=== PATIENT | female | born 1980 | race African-American/Black ===

== ENCOUNTER → 2016-06-10 | Outpatient (REF) ==
[~2016-06-10] MED LIST: DOXYCYCLINE HY100 MG PO; FLEXERIL 1010 MG/TAB PO; NORCO 325 MG-51 TAB PO
== END ==
LOC: WSOH 10:02
DX: Z02.1 Encounter for pre-employment examination (principal)

== ENCOUNTER → 2016-06-15 | Outpatient (REF) | LOC: WSOH 14:52 | DX: Z02.1 Encounter for pre-employment examination (principal); Z00.00 Encounter for general adult medical examination without abnormal findings ==

== ENCOUNTER → 2016-06-23 | Outpatient (REF) | LOC: WSOH 15:39 | DX: Z11.1 Encounter for screening for respiratory tuberculosis (principal) ==

== ENCOUNTER → 2016-07-14 | Outpatient (REF) | LOC: WSOH 15:36 | DX: Z02.89 Encounter for other administrative examinations (principal) ==

== ENCOUNTER 2016-09-18 09:08 | Emergency (ER) | payer SELFPAY ==
[~2016-09-18] VITALS: Ht 180.3 cm; Wt 81.4 kg
[~2016-09-18 09:08] MED LIST changes: -DOXYCYCLINE HY100 MG PO
[2016-09-18 09:20] VITALS: TEMP 99
[2016-09-18] MEDS ORDERED: NORCO 325 MG-51 TAB PO (09:51)
[2016-09-18] MEDS ORDERED: DOXYCYCLINE HY100 MG PO (09:51)
[2016-09-18 10:43] VITALS: BP 140/97; PULSE 75
== END 2016-09-18 10:47 | disposition home or self-care (01) ==
LOC: COL.ER 09:08
DX: N61.1 Abscess of the breast and nipple (principal); Z87.891 Personal history of nicotine dependence

== ENCOUNTER → 2016-12-10 | Outpatient (REF) ==
[~2016-12-10] MED LIST changes: +DOXYCYCLINE HY100 MG PO
== END ==
LOC: WSOH 15:25
DX: Z23 Encounter for immunization (principal)

== ENCOUNTER → 2017-01-07 | Outpatient (REF) | LOC: WSOH 15:43 | DX: Z02.89 Encounter for other administrative examinations (principal) ==

== ENCOUNTER 2017-05-04 06:58 | Emergency (ER) | payer OTHER ==
[~2017-05-04] VITALS: Ht 180.3 cm; Wt 79.5 kg
[2017-05-04 07:05] VITALS: TEMP 98.9
[2017-05-04 08:00] LABS: INFLUENZA A NEGATIVE; INFLUENZA B NEGATIVE
[2017-05-04] MEDS ORDERED: TAMIFLU 75MG75 MG PO (09:06)
[2017-05-04 09:16] VITALS: BP 136/80; PULSE 90
== END 2017-05-04 09:17 | disposition home or self-care (01) ==
LOC: COL.ER 06:58
PROVIDERS: Nurse Practitioner
DX: J11.1 Influenza due to unidentified influenza virus with other respiratory manifestations (principal); Z87.891 Personal history of nicotine dependence; Z98.890 Other specified postprocedural states
CPT/HCPCS: J1885; J2405; J7030

== ENCOUNTER → 2017-06-07 | Outpatient (CLI) | payer OTHER ==
[~2017-06-07] MED LIST changes: +TAMIFLU 75MG75 MG PO
== END ==
LOC: ZCOL.LAB 16:19
DX: N61.0 Mastitis without abscess (principal)

== ENCOUNTER → 2017-06-08 | Outpatient (CLI) | payer OTHER | LOC: COL.RAD 08:15 | DX: S83.511A Sprain of anterior cruciate ligament of right knee, initial encounter (principal); S83.281A Other tear of lateral meniscus, current injury, right knee, initial encounter; M94.8X8 Other specified disorders of cartilage, other site; Z98.890 Other specified postprocedural states ==

== ENCOUNTER 2017-08-03 11:15 | Outpatient (RCR) | payer OTHER | END 2017-08-24 08:08 | disposition home or self-care (01) | LOC: WSPT 11:15 | DX: M17.11 Unilateral primary osteoarthritis, right knee (principal); M70.61 Trochanteric bursitis, right hip | CPT/HCPCS: G0283-GP ==

== ENCOUNTER 2017-08-29 16:26 | Emergency (ER) | payer OTHER ==
[~2017-08-29] VITALS: Ht 180.3 cm; Wt 84.5 kg
[2017-08-29 16:29] VITALS: TEMP 98.2
[2017-08-29 16:59] LABS: BASO % 0.4 % (0.0-2.0); EOS % 0.1 % (0-4.0); GRAN # 6.7 (1.4-6.5); GRAN % 71.7 % (42.2-75.2); HEMATOCRIT 41.9 % (37.0-47.0); HEMOGLOBIN 14.9 g/dl (12.5-16.0); LYMPH # 2.1 (1.2-3.4); LYMPH % 22.9 % (20.0-51.0); MEAN CELL VOLUME 89 fl (80.0-100.0); MEAN CORPUSCULAR HEMOGLOBIN 32 pg (27.0-31.0); MEAN CORPUSCULAR HGB CONC 36 g/dl (33.0-37.0); MEAN PLATELET VOLUME 8.9 fl (7.4-10.4); MONO # 0.4 (0.1-0.6); MONO % 4.7 % (1.7-9.3); PLATELET COUNT 323 K/mm3 (130-400); RED BLOOD COUNT 4.69 M/mm3 (4.10-5.30); REDCELL DISTRIBUTION WIDTH-CV 13.2 % (11.5-14.5)
[2017-08-29 17:11] LABS: BILIRUBIN,TOTAL 0.4 mg/dL (0.0-1.0); CALCIUM 10.2 mg/dL (8.4-10.2); CREATININE, serum 0.72 mg/dL (0.52-1.25); TOTAL PROTEIN 9.2 gm/dL (6.4-8.2)
[2017-08-29] MEDS ORDERED: PHENERGAN 25 TA25 MG PO (17:22)
[2017-08-29 18:01] LABS: COLLECTION METHOD CLEAN CATCH
[2017-08-29 18:11] LABS: MUCOUS Present /lpf; PH 7 (5-8); SQUAMOUS EPITHELIAL 0-2 /hpf; URINE APPEARANCE Clear; URINE BACTERIA None Seen /hpf; URINE BILIRUBIN Negative (NEGATIVE); URINE BLOOD 2+ (NEGATIVE); URINE COLOR Yellow; URINE GLUCOSE Negative (NEGATIVE); URINE KETONE Trace (NEGATIVE); URINE LEUKOCYTE ESTERASE Negative (NEGATIVE); URINE NITRATE Negative (NEGATIVE); URINE PROTEIN(semi-quant) 2+ (NEGATIVE); URINE UROBILINOGEN Negative (NEGATIVE)
[2017-08-29 18:50] VITALS: BP 132/85; PULSE 82
== END 2017-08-29 18:50 | disposition home or self-care (01) ==
LOC: COL.ER 16:26
PROVIDERS: Emergency Medicine
DX: R11.10 Vomiting, unspecified (principal); R10.33 Periumbilical pain
CPT/HCPCS: J1170; J1200; J1630; J1885; J2405; J7030

== ENCOUNTER 2017-09-24 11:23 | Outpatient (RCR) | payer OTHER ==
[~2017-09-24 11:23] MED LIST changes: +PHENERGAN 25 TA25 MG PO
[2017-09-24] MEDS ORDERED: FIORICET 325 MG1 TA1 PO (16:09)
[2017-09-24] MEDS ORDERED: PHENERGAN 25 TA25 MG PO (16:09)
== END 2017-09-29 07:43 | disposition home or self-care (01) ==
LOC: WSPT 11:23
DX: Z01.89 Encounter for other specified special examinations (principal)

== ENCOUNTER 2017-09-24 11:51 | Emergency (ER) | payer OTHER ==
[~2017-09-24] VITALS: Ht 180.3 cm; Wt 83.2 kg
[2017-09-24 11:58] VITALS: BP 146/96; TEMP 98.2
[2017-09-24 13:02] LABS: BASO % 0.1 % (0.0-2.0); EOS % 0.4 % (0-4.0); GRAN # 7.4 (1.4-6.5); HEMATOCRIT 29.6 % (37.0-47.0); HEMOGLOBIN 10.1 g/dl (12.5-16.0); LYMPH # 1.4 (1.2-3.4); LYMPH % 14.9 % (20.0-51.0); MEAN CELL VOLUME 94 fl (80.0-100.0); MEAN CORPUSCULAR HEMOGLOBIN 32 pg (27.0-31.0); MEAN CORPUSCULAR HGB CONC 34 g/dl (33.0-37.0); MEAN PLATELET VOLUME 8.9 fl (7.4-10.4); MONO # 0.5 (0.1-0.6); MONO % 5.4 % (1.7-9.3); PLATELET COUNT 233 K/mm3 (130-400); RED BLOOD COUNT 3.16 M/mm3 (4.10-5.30); REDCELL DISTRIBUTION WIDTH-CV 12.4 % (11.5-14.5)
[2017-09-24 13:04] LABS: INR 1.1 (0.8-3.0)
[2017-09-24 13:07] LABS: PARTIAL THROMBOPLASTIN TIME 29.6 SECONDS (26.0-37.0)
[2017-09-24 13:11] LABS: CALCIUM 9.2 mg/dL (8.4-10.2); CREATININE, serum 0.66 mg/dL (0.52-1.25); POTASSIUM 3.3 mmol/L (3.4-5.0)
[2017-09-24] MEDS ORDERED: FIORICET 325 MG1 TA1 PO (16:09)
[2017-09-24] MEDS ORDERED: PHENERGAN 25 TA25 MG PO (16:09)
[2017-09-24 16:19] VITALS: PULSE 73
== END 2017-09-24 16:20 | disposition home or self-care (01) ==
LOC: COL.ER 11:51
PROVIDERS: Emergency Medicine
DX: G97.1 Other reaction to spinal and lumbar puncture (principal); I10 Essential (primary) hypertension; Z96.651 Presence of right artificial knee joint; Z79.82 Long term (current) use of aspirin
CPT/HCPCS: J1170; J1885; J2550; J3010; J7030

== ENCOUNTER 2017-11-09 16:15 | Outpatient (RCR) | payer OTHER ==
[~2017-11-09 16:15] MED LIST changes: +FIORICET 325 MG1 TA1 PO
== END 2017-11-10 11:09 | disposition home or self-care (01) ==
LOC: WSPT 16:15
DX: Z47.1 Aftercare following joint replacement surgery (principal); Z96.651 Presence of right artificial knee joint
CPT/HCPCS: G0283-GP

== ENCOUNTER 2017-11-29 20:20 | Emergency (ER) | payer OTHER ==
[~2017-11-29] VITALS: Ht 180.3 cm; Wt 84.1 kg
[2017-11-29 20:25] VITALS: BP 140/87; TEMP 98.7
[2017-11-29 20:53] LABS: BASO % 0.3 % (0.0-2.0); EOS # 0.1 (0.0-0.7); EOS % 1.1 % (0-4.0); GRAN # 3.9 (1.4-6.5); GRAN % 53.6 % (42.2-75.2); HEMOGLOBIN 12.3 g/dl (12.5-16.0); LYMPH # 2.8 (1.2-3.4); LYMPH % 39.3 % (20.0-51.0); MEAN CELL VOLUME 91 fl (80.0-100.0); MEAN CORPUSCULAR HEMOGLOBIN 31 pg (27.0-31.0); MEAN CORPUSCULAR HGB CONC 34 g/dl (33.0-37.0); MONO # 0.4 (0.1-0.6); MONO % 5.6 % (1.7-9.3); PLATELET COUNT 261 K/mm3 (130-400); RED BLOOD COUNT 3.95 M/mm3 (4.10-5.30); REDCELL DISTRIBUTION WIDTH-CV 12.4 % (11.5-14.5)
[2017-11-29 20:58] LABS: HEMATOCRIT 36.1 % (37.0-47.0)
[2017-11-29 21:04] LABS: ALBUMIN 4.4 gm/dL (3.5-5.0); BILIRUBIN,TOTAL 0.1 mg/dL (0.0-1.0); C-REACTIVE PROTEIN 0.7 mg/dL (0.0-0.9); CALCIUM 9.5 mg/dL (8.4-10.2); CREATININE, serum 0.75 mg/dL (0.52-1.25); POTASSIUM 3.6 mmol/L (3.4-5.0); TOTAL PROTEIN 7.5 gm/dL (6.4-8.2); URIC ACID 4.2 mg/dL (2.5-6.2)
[2017-11-29 21:32] LABS: ERYTHROCYTE SEDIMENTATION RATE 7 mm/hr (0-20)
[2017-11-29 21:45] VITALS: PULSE 76
== END 2017-11-29 21:48 | disposition home or self-care (01) ==
LOC: COL.ER 20:20
PROVIDERS: Emergency Medicine
DX: M25.561 Pain in right knee (principal); Z98.890 Other specified postprocedural states

== ENCOUNTER → 2018-01-20 | Outpatient (CLI) | payer OTHER | LOC: MC.RAD 10:00 | DX: N63.20 Unspecified lump in the left breast, unspecified quadrant (principal); Z98.890 Other specified postprocedural states | CPT/HCPCS: G0279 ==

== ENCOUNTER → 2018-08-03 | Outpatient (CLI) | payer OTHER | LOC: COL.RAD 09:38 | DX: M25.461 Effusion, right knee (principal); Z96.651 Presence of right artificial knee joint | CPT/HCPCS: A9503 ==

== ENCOUNTER 2019-01-13 14:07 | Day surgery (SDC) | payer OTHER ==
[~2019-01-13] VITALS: Ht 180.3 cm; Wt 85.0 kg
[2019-01-13 14:35] VITALS: BP 132/92; PULSE 91; TEMP 98.1
[2019-01-13] MEDS ORDERED: FLEXERIL 1010 MG/TAB PO (14:50)
[2019-01-13] MEDS ORDERED: SEROQUEL XR200 MG PO (14:51)
[2019-01-13] MEDS ORDERED: PROTONIX 40MG T40 MG PO (14:52)
[2019-01-13] MEDS ORDERED: ATARAX 25MG25 MG/TAB PO (14:53)
[2019-01-13] MEDS ORDERED: LEXAPRO20 MG PO (14:54)
[2019-01-13] MEDS ORDERED: ZOLOFT 50MG50 MG PO (14:55)
[2019-01-13] MEDS ORDERED: MOBIC15 MG PO (14:56)
--- NOTE | 2019-01-13 14:57 | NUR ---
TO BAY 6 - CALL LIGHT IN REACH JAMES AT BEDSIDE.
[2019-01-13 15:30] VITALS: BP 136/81; PULSE 83; TEMP 97.9
--- NOTE | 2019-01-13 15:30 | NUR ---
TO BAY6 PER CART FROM ENDOSCOPY. AMBULATED TO RECLINER WITH 2 ASSIST AND TOLERATED WELL. PATIENT SLEEPING.
--- NOTE | 2019-01-13 15:40 | NUR ---
DR REBOLLEDO INTO TALK WITH PATIENT.
[2019-01-13 15:45] VITALS: BP 120/82; PULSE 71
[2019-01-13 16:00] VITALS: BP 156/92; PULSE 70
--- NOTE | 2019-01-13 16:00 | NUR ---
RECEIVED AGUSTÍN. PUDDING AND APPLE SAUCE.
--- NOTE | 2019-01-13 16:10 | NUR ---
RECEIVED 2ND APPLE SAUCE AT BEDSIDE
[2019-01-13 16:15] VITALS: BP 158/87; PULSE 72
--- NOTE | 2019-01-13 16:15 | NUR ---
PATIENT TALKING WITH . ATE 100% AND TOLERATED WELL.
[2019-01-13 16:25] VITALS: BP 111/80; PULSE 79
--- NOTE | 2019-01-13 16:25 | NUR ---
RECEIVED DISCHARGE INSTRUCTIONS DISCONTINUED IV AND INT- CATHETER INTACT.
--- NOTE | 2019-01-13 16:42 | NUR ---
DISCHARGED PER WC BY NURSING STAFF TO PRIVATE CAR IN CARE OF - JAMES.
== END 2019-01-13 16:46 | disposition home or self-care (01) ==
LOC: SDCO 14:07
DX: K21.0 Gastro-esophageal reflux disease with esophagitis (principal); K58.9 Irritable bowel syndrome, unspecified; Z90.710 Acquired absence of both cervix and uterus; Z83.79 Family history of other diseases of the digestive system; Z87.891 Personal history of nicotine dependence
CPT/HCPCS: OP; J2250; J3010; J7030

== ENCOUNTER 2019-09-15 07:59 | Emergency (ER) | payer OTHER ==
[~2019-09-15] VITALS: Ht 180.3 cm; Wt 82.7 kg
[~2019-09-15 07:59] MED LIST changes: +ATARAX 25MG25 MG/TAB PO; +LEXAPRO20 MG PO; +MOBIC15 MG PO; +PROTONIX 40MG T40 MG PO; +SEROQUEL XR200 MG PO; +ZOLOFT 50MG50 MG PO
[2019-09-15 08:07] VITALS: TEMP 98.6
[2019-09-15] MEDS ORDERED: FLEXERIL 1010 MG/TAB PO (08:27)
[2019-09-15 09:28] VITALS: BP 145/82; PULSE 85
== END 2019-09-15 09:27 | disposition home or self-care (01) ==
LOC: COL.ER 07:59
DX: M54.5 Low back pain (principal); X50.1XXA Overexertion from prolonged static or awkward postures, initial encounter
CPT/HCPCS: J1885; J2270

== ENCOUNTER → 2020-04-03 | Outpatient (CLI) | payer OTHER | LOC: MC.RAD 13:01 | DX: Z12.31 Encounter for screening mammogram for malignant neoplasm of breast (principal) ==

== ENCOUNTER 2020-05-10 08:52 | Day surgery (SDC) | payer OTHER ==
[~2020-05-10] VITALS: Ht 180.3 cm; Wt 83.7 kg
[2020-05-10 09:30] VITALS: BP 151/93; PULSE 75; TEMP 98.6
[2020-05-10] MEDS ORDERED: FLEXERIL 1010 MG/TAB PO (09:39)
[2020-05-10] MEDS ORDERED: PRISTIQ100 MG PO (09:46)
[2020-05-10] MEDS ORDERED: ROBAXIN 50500 MG/TAB PO (09:48)
[2020-05-10] MEDS ORDERED: LEXAPRO20 MG PO (09:49)
[2020-05-10] MEDS ORDERED: DEXILANT60 MG PO (09:50)
[2020-05-10] MEDS ORDERED: ATARAX 25MG25 MG/TAB PO (09:51)
--- NOTE | 2020-05-10 09:54 | NUR ---
TO MARK AT 0910- CALL LIGHT IN REACH
[2020-05-10 11:10] VITALS: BP 169/110; PULSE 76; TEMP 98.6
--- NOTE | 2020-05-10 11:10 | NUR ---
Pt returned via cart to recliner in GI bay 1. Pt refused food or drink at this time and voiced wanting to rest. Reclined in chair and s/o called to be present for dc teaching when Dr Chapman returned post procedure. VS being monitored at bedside. BP elevated. Will continue to monitor. Pt does not appear in any acute distress. Call light in reach.
[2020-05-10 11:25] VITALS: BP 177/106; PULSE 68
[2020-05-10 11:40] VITALS: BP 167/97; PULSE 83
--- NOTE | 2020-05-10 11:46 | NUR ---
Pt has been up to bathroom and returned to chair in bay. S/O present waiting to visit with Dr Chapman. Pt given toast and sprite per request. Denies needs or complaints. Reports her BP does run high at time and this is not new for her.
[2020-05-10 12:09] VITALS: BP 169/102; PULSE 69
[2020-05-10 12:25] VITALS: BP 168/102; PULSE 73
--- NOTE | 2020-05-10 12:38 | NUR ---
Discharge teaching completed, pt verbalized understanding. Taken via wheelchair to private vehicle with , Estefania, driving.
== END 2020-05-10 12:38 | disposition home or self-care (01) ==
LOC: SDCO 08:52
DX: K29.30 Chronic superficial gastritis without bleeding (principal); K21.00 Gastro-esophageal reflux disease with esophagitis, without bleeding; J45.909 Unspecified asthma, uncomplicated; M19.90 Unspecified osteoarthritis, unspecified site; M54.5 Low back pain; K58.9 Irritable bowel syndrome, unspecified; F41.9 Anxiety disorder, unspecified; F32.9 Major depressive disorder, single episode, unspecified; Z20.822 Contact with and (suspected) exposure to COVID-19; Z79.899 Other long term (current) drug therapy; Z96.651 Presence of right artificial knee joint; Z87.891 Personal history of nicotine dependence; Z88.5 Allergy status to narcotic agent
CPT/HCPCS: J2704; J7120

== ENCOUNTER → 2020-08-07 | Outpatient (CLI) | payer OTHER ==
[~2020-08-07] MED LIST changes: +DEXILANT60 MG PO; +PRISTIQ100 MG PO; +ROBAXIN 50500 MG/TAB PO; +TESSALON PERLE200 MG PO; +ZITHROMAX Z PA250 MG PO; +ZOFRAN ODT4 MG PO
[2020-08-07 07:22] LABS: BASO % 0.4 % (0.0-2.0); EOS # 0.1 (0.0-0.7); EOS % 0.6 % (0-4.0); GRAN # 5.7 (1.4-6.5); GRAN % 70.4 % (42.2-75.2); HEMATOCRIT 40.6 % (37.0-47.0); HEMOGLOBIN 13.6 g/dl (12.5-16.0); LYMPH % 24.3 % (20.0-51.0); MEAN CELL VOLUME 94 fl (80.0-100.0); MEAN CORPUSCULAR HEMOGLOBIN 31 pg (27.0-31.0); MEAN CORPUSCULAR HGB CONC 34 g/dl (33.0-37.0); MEAN PLATELET VOLUME 9.4 fl (7.4-10.4); MONO # 0.3 (0.1-0.6); MONO % 4.1 % (1.7-9.3); PLATELET COUNT 268 K/mm3 (130-400); RED BLOOD COUNT 4.33 M/mm3 (4.10-5.30); REDCELL DISTRIBUTION WIDTH-CV 13.9 % (11.5-14.5)
[2020-08-07 07:49] LABS: ERYTHROCYTE SEDIMENTATION RATE 1 mm/hr (0-20)
== END ==
LOC: COL.LAB 06:58
PROVIDERS: Orthopaedic Surgery
DX: M25.561 Pain in right knee (principal); Z96.651 Presence of right artificial knee joint

== ENCOUNTER 2020-09-28 09:30 | Emergency (ER) | payer OTHER ==
[~2020-09-28] VITALS: Ht 180.3 cm; Wt 84.5 kg
[~2020-09-28 09:30] MED LIST changes: -TESSALON PERLE200 MG PO; -ZITHROMAX Z PA250 MG PO; -ZOFRAN ODT4 MG PO
[2020-09-28 09:44] VITALS: TEMP 98.5
[2020-09-28 10:27] LABS: COLLECTION METHOD CLEAN CATCH
[2020-09-28 10:37] LABS: MUCOUS Present /lpf; PH 6 (5-8); URINE APPEARANCE Hazy; URINE BACTERIA None Seen /hpf; URINE BILIRUBIN Negative (NEGATIVE); URINE BLOOD 2+ (NEGATIVE); URINE COLOR Yellow; URINE GLUCOSE Negative (NEGATIVE); URINE KETONE Negative (NEGATIVE); URINE LEUKOCYTE ESTERASE Negative (NEGATIVE); URINE NITRATE Negative (NEGATIVE); URINE PROTEIN(semi-quant) 2+ (NEGATIVE); URINE UROBILINOGEN Negative (NEGATIVE)
[2020-09-28 10:48] LABS: BASO % 0.3 % (0.0-2.0); EOS % 0.2 % (0-4.0); GRAN # 8.7 (1.4-6.5); GRAN % 83.8 % (42.2-75.2); HEMATOCRIT 39.8 % (37.0-47.0); HEMOGLOBIN 13.8 g/dl (12.5-16.0); LYMPH # 1.3 (1.2-3.4); LYMPH % 12.1 % (20.0-51.0); MEAN CELL VOLUME 89 fl (80.0-100.0); MEAN CORPUSCULAR HEMOGLOBIN 31 pg (27.0-31.0); MEAN CORPUSCULAR HGB CONC 35 g/dl (33.0-37.0); MEAN PLATELET VOLUME 8.8 fl (7.4-10.4); MONO # 0.3 (0.1-0.6); MONO % 3.3 % (1.7-9.3); PLATELET COUNT 291 K/mm3 (130-400); RED BLOOD COUNT 4.45 M/mm3 (4.10-5.30); REDCELL DISTRIBUTION WIDTH-CV 13.3 % (11.5-14.5)
[2020-09-28 11:01] LABS: ALBUMIN 4.3 gm/dL (3.5-5.0); BILIRUBIN,TOTAL 0.5 mg/dL (0.0-1.0); CALCIUM 8.6 mg/dL (8.4-10.2); CREATININE, serum 0.61 (0.52-1.25); POTASSIUM 3.6 mmol/L (3.4-5.0); TOTAL PROTEIN 7.3 gm/dL (6.4-8.2)
[2020-09-28] MEDS ORDERED: ZOFRAN ODT4 MG PO (12:34)
[2020-09-28 12:43] VITALS: BP 148/89; PULSE 70
== END 2020-09-28 12:45 | disposition home or self-care (01) ==
LOC: COL.ER 09:30
PROVIDERS: Emergency Medicine
DX: R11.2 Nausea with vomiting, unspecified (principal); R10.31 Right lower quadrant pain; R05 Cough; J34.89 Other specified disorders of nose and nasal sinuses; K21.9 Gastro-esophageal reflux disease without esophagitis; F32.9 Major depressive disorder, single episode, unspecified; Z90.710 Acquired absence of both cervix and uterus; Z32.02 Encounter for pregnancy test, result negative; Z87.891 Personal history of nicotine dependence; Z79.899 Other long term (current) drug therapy
CPT/HCPCS: J2405; J2550; J7030

== ENCOUNTER 2021-03-19 10:43 | Emergency (ER) | payer OTHER ==
[~2021-03-19] VITALS: Ht 180.3 cm; Wt 84.1 kg
[~2021-03-19 10:43] MED LIST changes: +ZOFRAN ODT4 MG PO
[2021-03-19] MEDS ORDERED: ZITHROMAX Z PA250 MG PO (13:27)
[2021-03-19] MEDS ORDERED: TESSALON PERLE200 MG PO (13:27)
[2021-03-19 13:44] VITALS: BP 154/64; PULSE 78; TEMP 98.2
== END 2021-03-19 13:46 | disposition home or self-care (01) ==
LOC: COL.ER 10:43
DX: S29.019A Strain of muscle and tendon of unspecified wall of thorax, initial encounter (principal); Z20.822 Contact with and (suspected) exposure to COVID-19; X58.XXXA Exposure to other specified factors, initial encounter

== ENCOUNTER 2021-05-14 05:36 | Emergency (ER) | payer OTHER ==
[~2021-05-14] VITALS: Ht 180.3 cm; Wt 84.1 kg
[~2021-05-14 05:36] MED LIST changes: +TESSALON PERLE200 MG PO; +ZITHROMAX Z PA250 MG PO
[2021-05-14 05:48] VITALS: BP 151/98; TEMP 99
[2021-05-14] MEDS ORDERED: PROAIR HFA0.09 MG/AC IH (06:03)
[2021-05-14] MEDS ORDERED: PREDNISONE20 MG PO (06:10)
[2021-05-14 06:32] VITALS: PULSE 92
== END 2021-05-14 06:45 | disposition home or self-care (01) ==
LOC: COL.ER 05:36
DX: U07.1 COVID-19 (principal); J45.909 Unspecified asthma, uncomplicated
CPT/HCPCS: J1885

== ENCOUNTER → 2021-06-02 | Outpatient (CLI) | payer OTHER ==
[~2021-06-02] MED LIST changes: +PREDNISONE20 MG PO; +PROAIR HFA0.09 MG/AC IH
== END ==
LOC: COL.RAD 07:01
DX: M51.16 Intervertebral disc disorders with radiculopathy, lumbar region (principal); M47.816 Spondylosis without myelopathy or radiculopathy, lumbar region; M47.817 Spondylosis without myelopathy or radiculopathy, lumbosacral region; R59.0 Localized enlarged lymph nodes; Q63.1 Lobulated, fused and horseshoe kidney

== ENCOUNTER 2021-08-29 05:29 | Day surgery (SDC) | payer OTHER ==
[~2021-08-29] VITALS: Ht 180.3 cm; Wt 86.7 kg
[2021-08-29] MEDS ORDERED: EFFEXOR XR75 MG/CAP PO (07:03)
[2021-08-29] MEDS ORDERED: ZANAFLEX2 MG PO (07:03)
[2021-08-29] MEDS ORDERED: NORCO 325 MG-51 TAB PO (07:03)
[2021-08-29 07:18] VITALS: BP 187/116; PULSE 78; TEMP 98.1
[2021-08-29 08:55] VITALS: BP 170/107; PULSE 75; TEMP 97.7
[2021-08-29 09:10] VITALS: BP 168/118; PULSE 71
[2021-08-29 09:25] VITALS: BP 166/99; PULSE 73
--- NOTE | 2021-08-29 10:30 | NUR ---
0855 PT RETURNED TO [facility] VIA CART. TRANSFERRED TO CHAIR WITH RN ASSIST. ALERT AND ORIENTED. MONITORS ATTACHED, INTERVALS AND ALARMS SET. VSS. PT DENIES PAIN OR NAUSEA. FOOD AND DRINK PROVIDED. CALL LIGHT IN REACH. 09 VSS. PT DENIES DISCOMFORT. TOLERATING FOOD AND DRINK WELL. 924 VSS. PT DENIES DISCOMFORT. ENCOURAGED PT AND SPOUSE TO MAKE APPT WITH PRIMARY CARE SOON POSSIBLE TO ADDRESS HYPERTENSION. EDUCATED PT ON POTENTIAL COMPLICATIONS OF UNTREATED HIGH BLOOD PRESSURE. IV REMOVED WITHOUT COMPLICATIONS. PT ALLOWED TO DRESS. WAITING ON DR. MIXON TO SPEAK WITH PT. 1030 DR. MIXON HAS BEEN IN TO SPEAK WITH PT. REVIEWED DISCHARGE INSTRUCTIONS AND EDUCATION MATERIAL, ANSERED ALL QUESTIONS. TRANSFERRED PT VIA WHEELCHAIR TO PERSONAL VEHICLE TO BE DRIVEN HOME BY SPOUSE.
== END 2021-08-29 10:30 | disposition home or self-care (01) ==
LOC: SDCO 05:29
DX: K92.1 Melena (principal); R19.4 Change in bowel habit; K21.00 Gastro-esophageal reflux disease with esophagitis, without bleeding; K64.1 Second degree hemorrhoids; R14.0 Abdominal distension (gaseous); R19.7 Diarrhea, unspecified; Z79.899 Other long term (current) drug therapy; Z87.891 Personal history of nicotine dependence
CPT/HCPCS: J2704; J7030

== ENCOUNTER → 2021-10-14 | Outpatient (CLI) | payer OTHER ==
[~2021-10-14] MED LIST changes: +EFFEXOR XR75 MG/CAP PO; +ZANAFLEX2 MG PO
== END ==
LOC: MHCPAIN 10:42
DX: M47.896 Other spondylosis, lumbar region (principal); M53.3 Sacrococcygeal disorders, not elsewhere classified; M54.50 Low back pain, unspecified; R29.2 Abnormal reflex; R20.2 Paresthesia of skin; R26.89 Other abnormalities of gait and mobility
CPT/HCPCS: G0463

== ENCOUNTER → 2021-10-27 | Outpatient (CLI) | payer OTHER | LOC: MHCPAIN 13:03 | DX: M53.3 Sacrococcygeal disorders, not elsewhere classified (principal); M46.06 Spinal enthesopathy, lumbar region; M54.50 Low back pain, unspecified | CPT/HCPCS: J1040; Q9967 ==

== ENCOUNTER → 2021-12-22 | Outpatient (CLI) | payer OTHER | LOC: COL.RAD 07:11 | DX: Q63.1 Lobulated, fused and horseshoe kidney (principal); R80.9 Proteinuria, unspecified | CPT/HCPCS: Q9967 ==

== ENCOUNTER → 2021-12-25 | Outpatient (CLI) | payer OTHER | LOC: COL.RAD 07:17 | DX: R29.2 Abnormal reflex (principal) ==

== ENCOUNTER → 2021-12-29 | Outpatient (CLI) | payer OTHER | LOC: MHCPAIN 10:35 | DX: M53.3 Sacrococcygeal disorders, not elsewhere classified (principal); M46.05 Spinal enthesopathy, thoracolumbar region; M13.88 Other specified arthritis, other site; M51.35 Other intervertebral disc degeneration, thoracolumbar region; M50.30 Other cervical disc degeneration, unspecified cervical region; R20.2 Paresthesia of skin | CPT/HCPCS: G0463 ==

== ENCOUNTER → 2022-01-19 | Outpatient (CLI) | payer OTHER | LOC: MHCPAIN 13:18 | DX: M53.3 Sacrococcygeal disorders, not elsewhere classified (principal); M25.561 Pain in right knee; Z96.651 Presence of right artificial knee joint | CPT/HCPCS: J3301; Q9967 ==